=== PATIENT | male | born 1940 | race Caucasian/White ===

== ENCOUNTER 2017-10-02 05:54 | Day surgery (SDC) | payer MEDICARE ==
[2017-10-02] VITALS (17 sets, daily range): BP systolic 92–161; BP diastolic 50–100
[~2017-10-02] VITALS: Ht 182.9 cm; Wt 89.8 kg
[~2017-10-02 05:54] MED LIST: AMLO2.5T2 PO; ASPI-1265 PO; Cefazolin 2GM/50ML dext iso,osmotic IVPB IV ONE; GLIM2TAB2 PO; LISI40TA4 PO; METF500T7 PO; PIOG15TA8 PO; TRIA1TAB3 PO; famotidine 20mg tablet PO ONE; ringers solution, lacted 1,000 ML IV SCH
[2017-10-02] MEDS ORDERED: LIDOcaine 1% (10mg/ml) 2ml vial ONE (06:14)
[2017-10-02 07:08] LABS: BASOPHILS # (AUTO) 0.1 X10'3 (0-0.2); BASOPHILS % (AUTO) 0.5 % (0-1); EOSINOPHILS # (AUTO) 0.3 X10'3 (0-0.9); EOSINOPHILS % (AUTO) 1.5 % (0-6); LYMPHOCYTES # (AUTO) 15.8 X10'3 (1.1-4.8); LYMPHOCYTES % (AUTO) 68.7 % (21-51); MEAN CORPUSCULAR HEMOGLOBIN 31.9 PG (27.0-31.0); MEAN CORPUSCULAR HGB CONC 33.9 % (33.0-36.5); MEAN CORPUSCULAR VOLUME 94.2 FL (78-98); MEAN PLATELET VOLUME 7.9 FL (7.4-10.4); MONOCYTES # (AUTO) 0.9 X10'3 (0-0.9); MONOCYTES % (AUTO) 3.7 % (2-12); NEUTROPHILS # (AUTO) 5.9 X10'3 (1.8-7.7); NEUTROPHILS % (AUTO) 25.6 % (42-75); PRE OP HEMATOCRIT 39.8 % (42.0-52.0); PRE OP HEMOGLOBIN 13.5 g/dL (14.0-17.9); PRE OP PLATELET COUNT 179 X10'3 (140-440); RED BLOOD COUNT 4.22 X10'6 (4.70-6.10); RED CELL DISTRIBUTION WIDTH 15.1 % (11.5-14.5)
[2017-10-02 07:20] LABS: PRE OP PROTIME 10.8 SECONDS (9.0-12.0)
[2017-10-02 07:23] LABS: ALBUMIN 3.6 G/DL (3.4-5.0); ALBUMIN/GLOBULIN RATIO 1.1 (1.1-1.5); ALKALINE PHOSPHATASE 74 IU/L (46-116); BLOOD UREA NITROGEN 22 MG/DL (7-18); BUN/CREATININE RATIO 19.3 (5.4-32.0); CALCIUM 9.5 MG/DL (8.5-10.1); CHLORIDE 102 MMOL/L (99-107); CREATININE 1.14 MG/DL (0.60-1.10); PRE OP ALT 26 U/L (30-65); PRE OP ANION GAP 4 (8-16); PRE OP BILIRUB, TOTAL 0.4 MG/DL (0.0-1.0); PRE OP GLUCOSE 161 MG/DL (70-104); PRE OP SODIUM 138 MMOL/L (135-145); TOTAL PROTEIN 6.9 G/DL (6.4-8.2); eGFR 62 ML/MIN
[2017-10-02 07:24] LABS: PRE OP AST 23 U/L (10-37); PRE OP POTASSIUM 5.4 MMOL/L (3.4-5.1)
[2017-10-02 07:48] LABS: HEMOGLOBIN A1C 8.4 % (4.5-6.2)
[2017-10-02 08:02] LABS: PLATELET ESTIMATE NORMAL; TOTAL CELLS COUNTED 100
[2017-10-02] MEDS ORDERED: ceFAZolin 1000mg inj ONE (08:14)
[2017-10-02] MEDS ORDERED: BUPIVAcaine/PF 2.5mg/ml (0.25%) 10ml vial ONE (08:36)
[2017-10-02] MEDS ORDERED: sevoflurane 250ml liquid IH ONE (09:01)
[2017-10-02] MEDS ORDERED: fentaNYL/PF 50MCG/1 ML 2ML syringe ONE (09:10)
[2017-10-02] MEDS ORDERED: midazolam 2 mg/2 ml injection ONE (09:10)
[2017-10-02] MEDS ORDERED: propofol inj 20 ML IV ONE (09:11)
[2017-10-02] MEDS ORDERED: rocuronium 10mg/ml inj IV ONE (09:11)
[2017-10-02] MEDS ORDERED: metoprolol tartrate 1mg/ml inj IV ONE (09:34)
[2017-10-02] MEDS ORDERED: ringers solution, lacted 1,000 ML IV SCH (09:54)
[2017-10-02] MEDS ORDERED: ondansetron/PF 4mg/2ml inj IV PRN (09:55)
[2017-10-02] MEDS ORDERED: meperidine/PF 25mg/ml syringe IV PRN ×3 (09:55)
[2017-10-02] MEDS ORDERED: morphine 4 MG/ML inj SYRINge IV PRN ×2 (09:55)
[2017-10-02] MEDS ORDERED: proCHLORperazine 10 MG/2 ml inj IV PRN (09:55)
[2017-10-02] MEDS ORDERED: HYDROcodone/acetaminophen 10/325mg tab PO PRN (10:25)
[2017-10-02] MEDS ORDERED: HYDROcodone/acetaminophen 5mg/325mg tablet PO PRN (10:25)
[2017-10-02] MEDS ORDERED: neostigmine methylsulfate 1 MG/ML 10ml vial ONE (10:32)
[2017-10-02] MEDS ORDERED: glycopyrrolate 0.2mg/ml inj ONE (10:32)
== END 2017-10-02 15:00 | disposition home or self-care (01) ==
LOC: PAS 05:54
PROVIDERS: ATTEND Surgery
DX: C85.80 Other specified types of non-Hodgkin lymphoma, unspecified site (principal); I10 Essential (primary) hypertension; E11.9 Type 2 diabetes mellitus without complications; I25.810 Atherosclerosis of coronary artery bypass graft(s) without angina pectoris; Z79.82 Long term (current) use of aspirin; Z79.84 Long term (current) use of oral hypoglycemic drugs; Z95.1 Presence of aortocoronary bypass graft; Z90.49 Acquired absence of other specified parts of digestive tract; Z79.01 Long term (current) use of anticoagulants; Z87.891 Personal history of nicotine dependence; Z85.820 Personal history of malignant melanoma of skin; Z98.890 Other specified postprocedural states; Z79.899 Other long term (current) drug therapy
CPT/HCPCS: 36415; 38570; 71045; 80053; 82948; 83036; 85025; 85610; 85730; 88184; 88185; 93005; A4315; J0690; J2175; J2250; J2405; J2704; J2710; J3010; J3490; J7120; 88304; 88305; 88341; 88342; A7000